=== PATIENT | male | born 1930 | race Caucasian/White ===

== ENCOUNTER 2016-07-06 06:04 | Inpatient (IN) | payer MEDICARE, BC ==
[~2016-07-06] VITALS: Ht 177.8 cm; Wt 74.4 kg
[2016-07-06] MEDS ORDERED: IV NORMAL SALINE 1000 ML BAG IV ONE (06:45)
[2016-07-06 07:04] LABS: BASOPHILS % (AUTO) 0.2 % (0.0-2.0); EOSINOPHILS % (AUTO) 0.1 % (0.0-7.0); LYMPHOCYTES # (AUTO) 0.3 K/uL (0.8-4.8); LYMPHOCYTES % (AUTO) 3.8 % (20.5-51.5); MEAN CORPUSCULAR HGB CONC 33 g/dL (32.0-37.0); MEAN CORPUSCULAR VOLUME 90.2 fL (82.0-92.0); MONOCYTES # (AUTO) 0.4 K/uL (0.1-1.30); MONOCYTES % (AUTO) 5.6 % (0.0-11.0); NEUTROPHILS # (AUTO) 7.2 K/uL (1.8-8.9); NEUTROPHILS % (AUTO) 90.3 % (38.5-71.5); PLATELET COUNT (AUTO) 98 K/uL (150-450); RED BLOOD CELL COUNT(AUTO) 4.32 MIL/uL (4.70-6.10); RED CELL DISTRIBUTION WIDTH 13.9 % (11.5-14.5); WHITE BLOOD COUNT (AUTO) 7.9 K/uL (4.0-11.2)
[2016-07-06 07:07] LABS: CALCIUM 8.1 mg/dL (8.5-10.1); CREATININE 1.2 mg/dL (0.6-1.3); POTASSIUM 3.5 mmol/L (3.5-5.1)
[2016-07-06 07:14] LABS: ALBUMIN 3.4 g/dL (3.4-5.0); BILIRUBIN,DIRECT 0.3 mg/dL (0.0-0.2); BILIRUBIN,TOTAL 1.6 mg/dL (0.2-1.0); TOTAL PROTEIN, SERUM 6.5 g/dL (6.4-8.2)
[2016-07-06 07:15] LABS: TROPONIN I 0.063 ng/mL (0.00-0.056)
[2016-07-06 07:25] LABS: LACTIC ACID 2.3 mmol/L (0.4-2.0)
[2016-07-06] MEDS ORDERED: CEFTRIAXONE 1 G in IV DEXTROSE 5% 50 ML IV ONE (07:30)
[2016-07-06] MEDS ORDERED: CEFTRIAXONE 1 G VIAL ONE (07:36)
[2016-07-06 08:50] VITALS: BP 104/48
[2016-07-06] MEDS ORDERED: RASA1TAB PO (10:50)
[2016-07-06] MEDS ORDERED: BETH25TA PO (10:50)
[2016-07-06] MEDS ORDERED: ROPI8TAB PO (10:50)
[2016-07-06] MEDS ORDERED: LEVO150T8 PO (10:50)
[2016-07-06] MEDS ORDERED: CARB1TAB40 PO (10:50)
[2016-07-06] MEDS ORDERED: ASPI81TA31 PO (10:50)
[2016-07-06] MEDS ORDERED: METF500T4 PO (10:50)
[2016-07-06] MEDS ORDERED: Z PAK PO (10:50)
[2016-07-06] MEDS ORDERED: SILO8CAP PO (10:50)
[2016-07-06] MEDS ORDERED: SIMV40TA5 PO (10:50)
[2016-07-06] MEDS ORDERED: CARB-35 PO (10:50)
[2016-07-06] MEDS ORDERED: DEXTROSE 50% 50 ML DISP.SYRIN IV PRN (11:15)
[2016-07-06] MEDS ORDERED: MAGNESIUM HYDROXIDE 30 ML LIQUID UDC PO PRN (11:15)
[2016-07-06] MEDS ORDERED: ONDANSETRON 4 MG/2 ML VIAL IV PRN (11:15)
[2016-07-06] MEDS ORDERED: ALBUTEROL SULFATE 2.5 MG/ 0.5 ML NEBU NEB PRN (11:15)
[2016-07-06] MEDS ORDERED: HYDROCODONE/APAP 5-325MG TABLET PO PRN (11:15)
[2016-07-06] MEDS ORDERED: ZOLPIDEM 5 MG TABLET PO PRN (11:15)
[2016-07-06 11:24] LABS: *BILIRUBIN,URIN NEGATIVE (NEGATIVE); *BLOOD, URINE NEGATIVE (NEGATIVE); *CLARITY,URINE CLEAR (CLEAR); *COLOR,URINE YELLOW (YELLOW); *KETONES,URINE TRACE (NEGATIVE); *PROTEIN,URINE 1+ (NEGATIVE); *UROBILINOGEN,URINE 0.2 E.U./dl (NORMAL); LEUKOCYTE ESTERASE ,URINE NEGATIVE (NEGATIVE); NITRITE, URINE NEGATIVE (NEGATIVE); PH,URINE 5.5 (5.0-8.0); UGLUCOSE NEGATIVE (NEGATIVE)
[2016-07-06 11:41] LABS: BACTERIA,URINE NONE SEEN /HPF (NONE SEEN); RBC,URINE 0-3 /HPF (0-3); SQUAMOUS EPITHELIAL CELL,UR FEW /HPF (NONE SEEN); WBC,URINE 0-3 /HPF (0-3)
[2016-07-06 12:00] VITALS: BP 108/50
[2016-07-06] MEDS: BETHANECHOL CHLORIDE 25 MG TABLET PO SCH ×3 (12:04→20:32)
[2016-07-06] MEDS: CARBIDOPA/LEVODOPA CR 50-200MG TABLET.SA PO SCH ×3 (12:04→20:32)
[2016-07-06] MEDS: ACETAMINOPHEN 325 MG TABLET PO PRN (12:04)
[2016-07-06] MEDS: BLOOD SUGAR DIAGNOSTIC 1 EACH STRIP VI SCH ×3 (12:10→20:42)
[2016-07-06] MEDS: POTASSIUM CHLORIDE 20 MEQ in IV NS 1000 ML 1,000 ML IV PRN (12:32)
[2016-07-06] MEDS: VANCOMYCIN IV 1,250 MG in IV NORMAL SALINE 500 ML IV SCH (12:32)
[2016-07-06] MEDS ORDERED: CARBIDOPA/LEVODOPA 25-100MG TAB.RAPDIS PO SCH (13:00)
[2016-07-06] MEDS: CARBIDOPA/LEVODOPA 25-100MG TABLET PO SCH ×2 (13:58→18:10)
[2016-07-06] MEDS: NORMAL SALINE FLUSH 10 ML DISP.SYRIN IV SCH ×2 (13:58→21:23)
[2016-07-06] MEDS: PIPERACILLIN/TAZOBACTAM/D5W 3.375 G in PREMIXED 1 EACH IV SCH ×2 (14:54→21:25)
[2016-07-06 16:15] VITALS: BP 92/50
[2016-07-06] MEDS: ASPIRIN EC 325 MG TABLET.DR PO SCH (17:10)
[2016-07-06] MEDS: METFORMIN HCL 500 MG TABLET PO SCH ×2 (17:11→17:30)
[2016-07-06 19:00] VITALS: BP 97/55
[2016-07-06] MEDS: DOCUSATE SODIUM 100 MG CAPSULE PO SCH (20:32)
[2016-07-06] MEDS: SIMVASTATIN 40 MG TABLET PO SCH (20:32)
[2016-07-06] MEDS ORDERED: TAMSULOSIN HCL 0.4 MG CAP.SR.24H PO SCH (21:00)
[2016-07-07] VITALS: BP 102/63
[2016-07-07 04:00] VITALS: BP 115/64
[2016-07-07] MEDS: NORMAL SALINE FLUSH 10 ML DISP.SYRIN IV SCH ×3 (05:17→21:40)
[2016-07-07] MEDS: PIPERACILLIN/TAZOBACTAM/D5W 3.375 G in PREMIXED 1 EACH IV SCH ×2 (05:51→14:10)
[2016-07-07] MEDS: POTASSIUM CHLORIDE 20 MEQ in IV NS 1000 ML 1,000 ML IV PRN ×2 (05:58→19:30)
[2016-07-07] MEDS: BLOOD SUGAR DIAGNOSTIC 1 EACH STRIP VI SCH ×4 (06:50→21:01)
[2016-07-07] MEDS: PANTOPRAZOLE SODIUM 40 MG TABLET.DR PO SCH (07:00)
[2016-07-07] MEDS ORDERED: LEVOTHYROXINE SODIUM 150 MCG TABLET PO SCH (07:00)
[2016-07-07 07:20] LABS: BASOPHILS % (AUTO) 0.1 % (0.0-2.0); EOSINOPHILS # (AUTO) 0.1 K/uL (0.0-0.7); HEMATOCRIT 38.2 % (40.0-50.0); HEMOGLOBIN 12.7 g/dL (14.0-18.0); LYMPHOCYTES # (AUTO) 0.9 K/uL (0.8-4.8); LYMPHOCYTES % (AUTO) 13.5 % (20.5-51.5); MEAN CORPUSCULAR HEMOGLOBIN 29.8 uug (27.0-31.0); MEAN CORPUSCULAR HGB CONC 33 g/dL (32.0-37.0); MEAN CORPUSCULAR VOLUME 89.8 fL (82.0-92.0); MONOCYTES # (AUTO) 0.2 K/uL (0.1-1.30); MONOCYTES % (AUTO) 3.2 % (0.0-11.0); NEUTROPHILS # (AUTO) 5.3 K/uL (1.8-8.9); NEUTROPHILS % (AUTO) 82.2 % (38.5-71.5); PLATELET COUNT (AUTO) 86 K/uL (150-450); RED BLOOD CELL COUNT(AUTO) 4.25 MIL/uL (4.70-6.10); RED CELL DISTRIBUTION WIDTH 14.2 % (11.5-14.5); WHITE BLOOD COUNT (AUTO) 6.5 K/uL (4.0-11.2)
[2016-07-07 07:40] LABS: THYROID STIMULATING HORMONE 0.181 mIU/mL (0.358-3.740)
[2016-07-07] MEDS: METFORMIN HCL 500 MG TABLET PO SCH ×2 (08:00→17:39)
[2016-07-07] MEDS ORDERED: BARIUM SULFATE 450 ML ORAL.SUSP ONE (08:14)
[2016-07-07] MEDS: RASAGILINE MESYLATE 1 MG PO SCH (08:19)
[2016-07-07] MEDS: ASPIRIN EC 325 MG TABLET.DR PO SCH (08:19)
[2016-07-07] MEDS: ROPINIROLE 8 MG PO SCH (08:19)
[2016-07-07] MEDS: CARBIDOPA/LEVODOPA CR 50-200MG TABLET.SA PO SCH ×4 (08:19→21:40)
[2016-07-07] MEDS: BETHANECHOL CHLORIDE 25 MG TABLET PO SCH ×4 (08:20→20:15)
[2016-07-07 08:58] LABS: ALBUMIN 2.7 g/dL (3.4-5.0); BILIRUBIN,TOTAL 1.2 mg/dL (0.2-1.0); CALCIUM 7.5 mg/dL (8.5-10.1); CREATININE 0.9 mg/dL (0.6-1.3); PHOSPHOROUS 2.2 mg/dL (2.5-4.9); TOTAL PROTEIN, SERUM 5.8 g/dL (6.4-8.2)
[2016-07-07] MEDS ORDERED: ROPINIROLE HCL 8 MG PO SCH (09:00)
[2016-07-07] MEDS ORDERED: Medication Not On Formulary EA (Silodosin (Rapaflo) 8 MG) PO SCH (09:00)
[2016-07-07 10:20] LABS: BAND % (MANUAL) 11 % (0-10); LYMPHOCYTES % (MANUAL) 15 % (20-40); MONOCYTES % (MANUAL) 4 % (2-10); NEUTROPHILS % (MANUAL) 70 % (42-75)
[2016-07-07 10:21] LABS: OVALOCYTES 1+; PLATELET ESTIMATE DECREASED
[2016-07-07] MEDS: CARBIDOPA/LEVODOPA 25-100MG TABLET PO SCH ×3 (11:00→20:15)
[2016-07-07] MEDS ORDERED: IOHEXOL 300MG/ML 100 ML INFUS..BTL ONE (11:11)
[2016-07-07] MEDS ORDERED: NORMAL SALINE FLUSH 10 ML DISP.SYRIN ONE (11:11)
[2016-07-07] MEDS ORDERED: IV NORMAL SALINE 250 ML IV ONE (11:12)
[2016-07-07 11:51] VITALS: BP 130/75
[2016-07-07] MEDS: VANCOMYCIN IV 1,250 MG in IV NORMAL SALINE 500 ML IV SCH (13:02)
[2016-07-07] MEDS ORDERED: Z GUARD REMEDY PASTE 57 GM TUBE TOP PRN (14:00)
[2016-07-07] MEDS ORDERED: NEUTRA PHOS PACKET PO ONE (15:00)
[2016-07-07 15:48] VITALS: BP 117/66
[2016-07-07] MEDS: DOCUSATE SODIUM 100 MG CAPSULE PO SCH (20:15)
[2016-07-07] MEDS: SIMVASTATIN 40 MG TABLET PO SCH (20:15)
[2016-07-07] MEDS: TAMSULOSIN HCL 0.4 MG CAP.SR.24H PO SCH (20:15)
[2016-07-07] MEDS: INSULIN REGULAR, HUMAN 300 UNIT/3 ML VIAL SQ PRN (21:01)
[2016-07-07 21:28] VITALS: BP 117/71
[2016-07-07] MEDS: CEFTRIAXONE 1 G in IV DEXTROSE 5% 50 ML IV SCH (21:40)
[2016-07-08 05:47] VITALS: BP 125/74
[2016-07-08] MEDS: PANTOPRAZOLE SODIUM 40 MG TABLET.DR PO SCH (06:23)
[2016-07-08] MEDS: LEVOTHYROXINE SODIUM 125 MCG TABLET PO SCH (06:23)
[2016-07-08] MEDS: NORMAL SALINE FLUSH 10 ML DISP.SYRIN IV SCH ×3 (06:23→22:04)
[2016-07-08] MEDS: BLOOD SUGAR DIAGNOSTIC 1 EACH STRIP VI SCH ×4 (06:23→20:21)
[2016-07-08] MEDS ORDERED: LEVOTHYROXINE SODIUM 150 MCG TABLET PO SCH (07:00)
[2016-07-08 07:04] LABS: EOSINOPHILS % (AUTO) 0.4 % (0.0-7.0); HEMATOCRIT 39.3 % (40.0-50.0); HEMOGLOBIN 12.6 g/dL (14.0-18.0); LYMPHOCYTES # (AUTO) 0.6 K/uL (0.8-4.8); LYMPHOCYTES % (AUTO) 11.4 % (20.5-51.5); MEAN CORPUSCULAR HEMOGLOBIN 29.2 uug (27.0-31.0); MEAN CORPUSCULAR HGB CONC 32 g/dL (32.0-37.0); MEAN CORPUSCULAR VOLUME 90.9 fL (82.0-92.0); MONOCYTES # (AUTO) 0.2 K/uL (0.1-1.30); MONOCYTES % (AUTO) 4.5 % (0.0-11.0); NEUTROPHILS # (AUTO) 4.1 K/uL (1.8-8.9); NEUTROPHILS % (AUTO) 83.7 % (38.5-71.5); PLATELET COUNT (AUTO) 102 K/uL (150-450); RED BLOOD CELL COUNT(AUTO) 4.32 MIL/uL (4.70-6.10); RED CELL DISTRIBUTION WIDTH 14.2 % (11.5-14.5); WHITE BLOOD COUNT (AUTO) 4.9 K/uL (4.0-11.2)
[2016-07-08] MEDS: METFORMIN HCL 500 MG TABLET PO SCH ×2 (07:24→10:05)
[2016-07-08 07:38] LABS: CALCIUM 7.8 mg/dL (8.5-10.1); CREATININE 0.8 mg/dL (0.6-1.3); MAGNESIUM 1.7 mg/dL (1.8-2.4); PHOSPHOROUS 2.4 mg/dL (2.5-4.9); POTASSIUM 3.6 mmol/L (3.5-5.1)
[2016-07-08] MEDS ORDERED: POTASSIUM CHLORIDE 20 MEQ TAB.PRT.SR PO ONE (08:45)
[2016-07-08] MEDS ORDERED: MAGNESIUM OXIDE 400 MG TABLET PO ONE (08:45)
[2016-07-08] MEDS ORDERED: NEUTRA PHOS PACKET PO ONE (08:45)
[2016-07-08] MEDS: CARBIDOPA/LEVODOPA CR 50-200MG TABLET.SA PO SCH ×4 (10:04→20:21)
[2016-07-08] MEDS: ASPIRIN EC 325 MG TABLET.DR PO SCH (10:04)
[2016-07-08] MEDS: RASAGILINE MESYLATE 1 MG PO SCH (10:05)
[2016-07-08] MEDS: BETHANECHOL CHLORIDE 25 MG TABLET PO SCH ×4 (10:05→20:21)
[2016-07-08] MEDS: ROPINIROLE 8 MG PO SCH (10:06)
[2016-07-08 10:08] LABS: LYMPHOCYTES % (MANUAL) 10 % (20-40); MONOCYTES % (MANUAL) 8 % (2-10); NEUTROPHILS % (MANUAL) 82 % (42-75); PLATELET ESTIMATE DECREASED
[2016-07-08 11:27] VITALS: BP 137/67
[2016-07-08] MEDS: INSULIN REGULAR, HUMAN 300 UNIT/3 ML VIAL SQ PRN (12:06)
[2016-07-08] MEDS: CARBIDOPA/LEVODOPA 25-100MG TABLET PO SCH ×3 (12:06→19:04)
[2016-07-08] MEDS: LEVOFLOXACIN 500 MG TABLET PO SCH (13:10)
[2016-07-08] MEDS: BOOST GLUCOSE CONTROL 237 ML LIQUID (CHOCOLATE) PO SCH ×2 (13:11→17:53)
[2016-07-08 15:25] VITALS: BP 100/53
[2016-07-08 16:20] VITALS: BP 122/69
[2016-07-08] MEDS: ACETAMINOPHEN 325 MG TABLET PO PRN (16:24)
[2016-07-08] MEDS: POTASSIUM CHLORIDE 20 MEQ in IV NS 1000 ML 1,000 ML IV PRN (17:49)
[2016-07-08 20:00] VITALS: BP 105/56
[2016-07-08] MEDS: TAMSULOSIN HCL 0.4 MG CAP.SR.24H PO SCH (20:20)
[2016-07-08] MEDS: OSELTAMIVIR PHOSPHATE 75 MG CAPSULE PO SCH (20:21)
[2016-07-08] MEDS: SIMVASTATIN 40 MG TABLET PO SCH (20:21)
[2016-07-08] MEDS: DOCUSATE SODIUM 100 MG CAPSULE PO SCH (21:00)
[2016-07-08] MEDS ORDERED: ALBUTEROL SULFATE 2.5 MG/ 0.5 ML NEBU ONE (21:45)
[2016-07-08] MEDS: CEFTRIAXONE 1 G in IV DEXTROSE 5% 50 ML IV SCH (22:03)
[2016-07-09] MEDS: NORMAL SALINE FLUSH 10 ML DISP.SYRIN IV SCH ×3 (05:20→21:09)
[2016-07-09] MEDS: ACETAMINOPHEN 325 MG TABLET PO PRN (05:20)
[2016-07-09 05:30] VITALS: BP 127/66
[2016-07-09] MEDS: BLOOD SUGAR DIAGNOSTIC 1 EACH STRIP VI SCH ×4 (06:41→21:07)
[2016-07-09] MEDS: PANTOPRAZOLE SODIUM 40 MG TABLET.DR PO SCH (06:41)
[2016-07-09] MEDS: LEVOTHYROXINE SODIUM 125 MCG TABLET PO SCH (06:41)
[2016-07-09 07:15] LABS: EOSINOPHILS % (AUTO) 0.1 % (0.0-7.0); HEMATOCRIT 35.8 % (40.0-50.0); LYMPHOCYTES # (AUTO) 0.4 K/uL (0.8-4.8); LYMPHOCYTES % (AUTO) 6.7 % (20.5-51.5); MEAN CORPUSCULAR HEMOGLOBIN 29.9 uug (27.0-31.0); MEAN CORPUSCULAR HGB CONC 33 g/dL (32.0-37.0); MEAN CORPUSCULAR VOLUME 89.4 fL (82.0-92.0); MONOCYTES # (AUTO) 0.3 K/uL (0.1-1.30); MONOCYTES % (AUTO) 5.9 % (0.0-11.0); NEUTROPHILS # (AUTO) 4.9 K/uL (1.8-8.9); NEUTROPHILS % (AUTO) 87.3 % (38.5-71.5); PLATELET COUNT (AUTO) 86 K/uL (150-450); WHITE BLOOD COUNT (AUTO) 5.6 K/uL (4.0-11.2)
[2016-07-09] MEDS: BETHANECHOL CHLORIDE 25 MG TABLET PO SCH ×4 (08:10→21:05)
[2016-07-09] MEDS: ASPIRIN EC 325 MG TABLET.DR PO SCH (08:10)
[2016-07-09] MEDS: METFORMIN HCL 500 MG TABLET PO SCH ×2 (08:10→17:53)
[2016-07-09] MEDS: OSELTAMIVIR PHOSPHATE 75 MG CAPSULE PO SCH ×2 (08:10→21:05)
[2016-07-09] MEDS: CARBIDOPA/LEVODOPA CR 50-200MG TABLET.SA PO SCH ×4 (08:10→21:05)
[2016-07-09 08:14] LABS: ALBUMIN 2.5 g/dL (3.4-5.0); BILIRUBIN,TOTAL 0.8 mg/dL (0.2-1.0); CALCIUM 7.6 mg/dL (8.5-10.1); CREATININE 0.9 mg/dL (0.6-1.3); MAGNESIUM 1.5 mg/dL (1.8-2.4); PHOSPHOROUS 2.9 mg/dL (2.5-4.9); POTASSIUM 3.6 mmol/L (3.5-5.1); TOTAL PROTEIN, SERUM 5.9 g/dL (6.4-8.2)
[2016-07-09] MEDS: ROPINIROLE 8 MG PO SCH (08:14)
[2016-07-09] MEDS: RASAGILINE MESYLATE 1 MG PO SCH (08:14)
[2016-07-09] MEDS: BOOST GLUCOSE CONTROL 237 ML LIQUID (CHOCOLATE) PO SCH ×2 (08:17→17:48)
[2016-07-09] MEDS: POTASSIUM CHLORIDE 20 MEQ in IV NS 1000 ML 1,000 ML IV PRN (08:17)
[2016-07-09 10:26] LABS: BAND % (MANUAL) 8 % (0-10); BASOPHILS % (MANUAL) 4 % (0-2); LYMPHOCYTES % (MANUAL) 8 % (20-40); NEUTROPHILS % (MANUAL) 80 % (42-75); PLATELET ESTIMATE DECREASED
[2016-07-09 11:07] VITALS: BP 134/78
[2016-07-09] MEDS: CARBIDOPA/LEVODOPA 25-100MG TABLET PO SCH ×3 (12:06→19:09)
[2016-07-09] MEDS: MAGNESIUM SULFATE/D5W 100 ML IV SCH ×2 (12:18→14:10)
[2016-07-09] MEDS: LEVOFLOXACIN 500 MG TABLET PO SCH (12:53)
[2016-07-09] MEDS: VANCOMYCIN IV 1 G in PREMIXED 0 EACH IV SCH (16:06)
[2016-07-09 17:00] VITALS: BP 93/59
[2016-07-09] MEDS: MEROPENEM 1 G in IV NORMAL SALINE 100 ML IV SCH ×3 (17:30→21:09)
[2016-07-09 17:47] LABS: *BILIRUBIN,URIN NEGATIVE (NEGATIVE); *BLOOD, URINE 2+ (NEGATIVE); *COLOR,URINE YELLOW (YELLOW); *KETONES,URINE 2+ (NEGATIVE); *PROTEIN,URINE 2+ (NEGATIVE); *UROBILINOGEN,URINE 0.2 E.U./dl (NORMAL); LEUKOCYTE ESTERASE ,URINE NEGATIVE (NEGATIVE); NITRITE, URINE NEGATIVE (NEGATIVE); PH,URINE 5.5 (5.0-8.0); UGLUCOSE NEGATIVE (NEGATIVE)
[2016-07-09 18:02] LABS: *CLARITY,URINE SLIGHTLY HAZY (CLEAR)
[2016-07-09 18:05] LABS: COARSE GRANULAR CASTS,URINE 0-3 /LPF; SQUAMOUS EPITHELIAL CELL,UR FEW /HPF (NONE SEEN); URINE AMORPHOUS URATE FEW /HPF
[2016-07-09 18:06] LABS: MUCUS,URINE MANY /LPF (0-FEW)
[2016-07-09 19:03] VITALS: BP 102/71
[2016-07-09 20:00] VITALS: BP 109/68
[2016-07-09] MEDS: SIMVASTATIN 40 MG TABLET PO SCH (21:04)
[2016-07-09] MEDS: DOCUSATE SODIUM 100 MG CAPSULE PO SCH (21:05)
[2016-07-09] MEDS: TAMSULOSIN HCL 0.4 MG CAP.SR.24H PO SCH (21:05)
[2016-07-09] MEDS: LACTOBACILLUS RHAMNOSUS GG 1 EACH CAPSULE PO SCH (21:05)
[2016-07-10] MEDS ORDERED: ALBUTEROL SULFATE 2.5 MG/3 ML NEBU ONE (00:34)
[2016-07-10] MEDS: ALBUTEROL SULFATE 2.5 MG/3 ML NEBU NEB PRN ×2 (00:39→21:22)
[2016-07-10 04:00] VITALS: BP 144/83
[2016-07-10] MEDS: VANCOMYCIN IV 1 G in PREMIXED 0 EACH IV SCH ×2 (04:06→19:06)
[2016-07-10] MEDS: POTASSIUM CHLORIDE 20 MEQ in IV NS 1000 ML 1,000 ML IV PRN ×2 (04:20→21:59)
[2016-07-10 06:38] LABS: BASOPHILS % (AUTO) 0.1 % (0.0-2.0); HEMATOCRIT 35.7 % (40.0-50.0); HEMOGLOBIN 11.9 g/dL (14.0-18.0); LYMPHOCYTES # (AUTO) 0.4 K/uL (0.8-4.8); LYMPHOCYTES % (AUTO) 6.3 % (20.5-51.5); MEAN CORPUSCULAR HGB CONC 33 g/dL (32.0-37.0); MEAN CORPUSCULAR VOLUME 89.9 fL (82.0-92.0); MONOCYTES # (AUTO) 0.4 K/uL (0.1-1.30); MONOCYTES % (AUTO) 5.1 % (0.0-11.0); NEUTROPHILS # (AUTO) 6.1 K/uL (1.8-8.9); NEUTROPHILS % (AUTO) 88.5 % (38.5-71.5); PLATELET COUNT (AUTO) 87 K/uL (150-450); RED BLOOD CELL COUNT(AUTO) 3.97 MIL/uL (4.70-6.10); RED CELL DISTRIBUTION WIDTH 13.9 % (11.5-14.5); WHITE BLOOD COUNT (AUTO) 6.9 K/uL (4.0-11.2)
[2016-07-10] MEDS: MEROPENEM 1 G in IV NORMAL SALINE 100 ML IV SCH ×3 (06:45→21:42)
[2016-07-10] MEDS: NORMAL SALINE FLUSH 10 ML DISP.SYRIN IV SCH ×3 (06:46→21:42)
[2016-07-10] MEDS: LEVOTHYROXINE SODIUM 125 MCG TABLET PO SCH (06:46)
[2016-07-10] MEDS: PANTOPRAZOLE SODIUM 40 MG TABLET.DR PO SCH (06:46)
[2016-07-10] MEDS: BLOOD SUGAR DIAGNOSTIC 1 EACH STRIP VI SCH ×4 (07:08→21:42)
[2016-07-10 07:20] LABS: CALCIUM 7.4 mg/dL (8.5-10.1); CREATININE 0.8 mg/dL (0.6-1.3); MAGNESIUM 1.8 mg/dL (1.8-2.4); POTASSIUM 3.9 mmol/L (3.5-5.1)
[2016-07-10 08:00] VITALS: BP 131/79
[2016-07-10] MEDS: OSELTAMIVIR PHOSPHATE 75 MG CAPSULE PO SCH ×2 (08:25→20:24)
[2016-07-10] MEDS: METFORMIN HCL 500 MG TABLET PO SCH ×2 (08:25→17:24)
[2016-07-10] MEDS: BETHANECHOL CHLORIDE 25 MG TABLET PO SCH ×4 (08:25→20:25)
[2016-07-10] MEDS: ASPIRIN EC 325 MG TABLET.DR PO SCH (08:25)
[2016-07-10] MEDS: CARBIDOPA/LEVODOPA CR 50-200MG TABLET.SA PO SCH ×4 (08:26→20:24)
[2016-07-10] MEDS: LACTOBACILLUS RHAMNOSUS GG 1 EACH CAPSULE PO SCH ×2 (08:26→20:25)
[2016-07-10] MEDS: ROPINIROLE 8 MG PO SCH (08:28)
[2016-07-10] MEDS: RASAGILINE MESYLATE 1 MG PO SCH (08:28)
[2016-07-10] MEDS: INSULIN REGULAR, HUMAN 300 UNIT/3 ML VIAL SQ PRN (08:31)
[2016-07-10] MEDS: BOOST GLUCOSE CONTROL 237 ML LIQUID (CHOCOLATE) PO SCH ×2 (08:33→17:24)
[2016-07-10 09:04] LABS: BAND % (MANUAL) 4 % (0-10); LYMPHOCYTES % (MANUAL) 11 % (20-40); MONOCYTES % (MANUAL) 8 % (2-10); NEUTROPHILS % (MANUAL) 77 % (42-75)
[2016-07-10 09:05] LABS: PLATELET ESTIMATE DECREASED
[2016-07-10] MEDS: CARBIDOPA/LEVODOPA 25-100MG TABLET PO SCH ×3 (11:06→19:06)
[2016-07-10] MEDS: LEVOFLOXACIN 500 MG TABLET PO SCH (12:40)
[2016-07-10 15:01] VITALS: BP 103/59
[2016-07-10] MEDS: TAMSULOSIN HCL 0.4 MG CAP.SR.24H PO SCH (20:24)
[2016-07-10] MEDS: SIMVASTATIN 40 MG TABLET PO SCH (20:25)
[2016-07-10] MEDS: DOCUSATE SODIUM 100 MG CAPSULE PO SCH (20:25)
[2016-07-10 20:36] VITALS: BP 113/69
[2016-07-11] MEDS: ACETAMINOPHEN 325 MG TABLET PO PRN ×2 (01:06→08:13)
[2016-07-11 05:00] VITALS: BP 140/74
[2016-07-11] MEDS: MEROPENEM 1 G in IV NORMAL SALINE 100 ML IV SCH ×2 (06:29→14:12)
[2016-07-11] MEDS: PANTOPRAZOLE SODIUM 40 MG TABLET.DR PO SCH (06:29)
[2016-07-11] MEDS: NORMAL SALINE FLUSH 10 ML DISP.SYRIN IV SCH ×2 (06:29→14:12)
[2016-07-11] MEDS: LEVOTHYROXINE SODIUM 125 MCG TABLET PO SCH (06:29)
[2016-07-11] MEDS: BLOOD SUGAR DIAGNOSTIC 1 EACH STRIP VI SCH ×2 (06:31→11:34)
[2016-07-11] MEDS: OSELTAMIVIR PHOSPHATE 75 MG CAPSULE PO SCH (08:12)
[2016-07-11] MEDS: BETHANECHOL CHLORIDE 25 MG TABLET PO SCH ×2 (08:12→12:26)
[2016-07-11] MEDS: ASPIRIN EC 325 MG TABLET.DR PO SCH (08:12)
[2016-07-11] MEDS: BOOST GLUCOSE CONTROL 237 ML LIQUID (CHOCOLATE) PO SCH (08:12)
[2016-07-11] MEDS: CARBIDOPA/LEVODOPA CR 50-200MG TABLET.SA PO SCH ×2 (08:13→12:26)
[2016-07-11] MEDS: LACTOBACILLUS RHAMNOSUS GG 1 EACH CAPSULE PO SCH (08:13)
[2016-07-11] MEDS: METFORMIN HCL 500 MG TABLET PO SCH (08:13)
[2016-07-11] MEDS: ROPINIROLE 8 MG PO SCH (08:48)
[2016-07-11] MEDS: RASAGILINE MESYLATE 1 MG PO SCH (08:49)
[2016-07-11] MEDS ORDERED: FLUCONAZOLE 200 MG/NS 100ML IV 100 MG in PREMIXED 1 EACH IV SCH (11:00)
[2016-07-11] MEDS: CARBIDOPA/LEVODOPA 25-100MG TABLET PO SCH ×2 (11:23→15:54)
[2016-07-11 12:00] VITALS: BP 99/55
[2016-07-11] MEDS: LEVOFLOXACIN 500 MG TABLET PO SCH (12:26)
[2016-07-11 12:30] VITALS: BP 99/55
[2016-07-11] MEDS ORDERED: VANCOMYCIN IV 1 G in PREMIXED 0 EACH IV SCH (13:00)
[2016-07-11] MEDS ORDERED: LACT1CAP57 PO (15:10)
[2016-07-11] MEDS ORDERED: METR500T PO (15:10)
[2016-07-11] MEDS ORDERED: OSEL75CA PO (15:10)
[2016-07-11] MEDS ORDERED: ASPI-618 PO (15:10)
[2016-07-11] MEDS ORDERED: FAMO-132 PO (15:10)
[2016-07-11] MEDS ORDERED: LEVO500T15 PO (15:10)
[2016-07-11 16:05] VITALS: BP 134/72
[2016-07-11 16:45] VITALS: BP 134/72
== END 2016-07-11 17:00 | disposition home health service (06) | DRG 871 ==
LOC: ER 06:12 → MED 08:21 → TELE 09:28 → MED 07-07 15:33
PROVIDERS: ADMIT Internal Medicine; ATTEND Internal Medicine
DX: A41.9 Sepsis, unspecified organism (principal); I21.4 Non-ST elevation (NSTEMI) myocardial infarction; N17.0 Acute kidney failure with tubular necrosis; J69.0 Pneumonitis due to inhalation of food and vomit; G93.40 Encephalopathy, unspecified; E87.2 Acidosis; D68.59 Other primary thrombophilia; J90 Pleural effusion, not elsewhere classified; K57.32 Diverticulitis of large intestine without perforation or abscess without bleeding; E86.0 Dehydration; J20.9 Acute bronchitis, unspecified; K52.9 Noninfective gastroenteritis and colitis, unspecified; D69.6 Thrombocytopenia, unspecified; D64.9 Anemia, unspecified; E03.9 Hypothyroidism, unspecified; E11.9 Type 2 diabetes mellitus without complications; E78.5 Hyperlipidemia, unspecified; F32.9 Major depressive disorder, single episode, unspecified; G20 Parkinson's disease; Z66 Do not resuscitate; Z87.891 Personal history of nicotine dependence; K80.20 Calculus of gallbladder without cholecystitis without obstruction; W18.30XA Fall on same level, unspecified, initial encounter; Y93.9 Activity, unspecified; Y92.009 Unspecified place in unspecified non-institutional (private) residence as the place of occurrence of the external cause; Y99.9 Unspecified external cause status; F02.80 Dementia in other diseases classified elsewhere, unspecified severity, without behavioral disturbance, psychotic disturbance, mood disturbance, and anxiety; R14.0 Abdominal distension (gaseous); Z95.0 Presence of cardiac pacemaker; R33.8 Other retention of urine; N31.9 Neuromuscular dysfunction of bladder, unspecified; N40.0 Benign prostatic hyperplasia without lower urinary tract symptoms; R65.20 Severe sepsis without septic shock; I25.10 Atherosclerotic heart disease of native coronary artery without angina pectoris
CPT/HCPCS: 36415; 70030-TC; 70450; 71010; 71250; 74000; 76604; 83605; 83735; 84100; 84443; 85025; 85730; 86850; 86900; 86901; 87040; 87070; 87086; 87278; 87798; 93005; 94640; 94664; 97001; 97116; 97530; A4663; J0696; J1450; J1815; J2185; J2543; J3370; J3475; J3480; J3490; J7030; J7040; J7050; J7060; J8499; Q9951; Q9967